=== PATIENT | male | born 1990 | race Two or more races ===

== ENCOUNTER 2016-10-17 16:25 | Emergency (ER) | payer SELFPAY ==
[~2016-10-17] VITALS: Ht 185.4 cm; Wt 99.8 kg
[2016-10-17 16:25] VITALS: BP 156/94
== END 2016-10-17 17:32 | disposition left against medical advice (07) ==
LOC: ER 16:33
DX: T40.1X1A Poisoning by heroin, accidental (unintentional), initial encounter (principal); Z53.21 Procedure and treatment not carried out due to patient leaving prior to being seen by health care provider; Y93.89 Activity, other specified; Y99.8 Other external cause status; Y92.89 Other specified places as the place of occurrence of the external cause